=== PATIENT | female | born 1975 | race Caucasian/White ===

== ENCOUNTER 2017-03-31 09:21 | Emergency (ER) | payer MEDICAID ==
[2017-03-31 09:27] VITALS: O2SAT 99
[2017-03-31] MEDS ORDERED: ONDANSETRON DISINTEGRATING 4 MG TAB PO ONE (09:39)
--- NOTE | 2017-03-31 09:43 | EDPHY ---
H & P Stated Complaint: Had panic attack 2 days ago,passed out & hit head;concern about concussion Source: Patient - Personal History LMP (Females 10-55): 8-14 Days Ago Current Tetanus Diphtheria and Acellular Pertussis (TDAP): Yes - Medical/Surgical History Hx Asthma: Yes Hx Chronic Respiratory Disease: No Hx Diabetes: No Hx Cardiac Disease: No Hx Renal Disease: No Hx Cirrhosis: No Hx Alcoholism: No Hx HIV/AIDS: No Hx Splenectomy or Spleen Trauma: No Other PMH: ADHD. anxiety - Social History Smoking Status: Never smoked Time Seen by Provider: 03/31/17 09:30 HPI/ROS: CHIEF COMPLAINT: Headache HISTORY OF PRESENT ILLNESS: This is a 41-year-old female presenting to the emergency department complaining headache with nausea. Patient states 2 days ago she was sitting on the toilet felt like she was having a panic attack hands felt numb, passed out while she was on the toilet hitting head. Patient states her son and his friends found her on the floor and woke her up. Patient states she does not know how long she was on the floor, since then she has been having intermittent nausea with headaches. Patient also reports she has not been taking her Adderall for several days, does not know if this panic attack may have been a component of not using her Adderall. Denies any chest pain or shortness of breath REVIEW OF SYSTEMS: Constitutional: No fever, no chills. Eyes: No blurred vision ENT: No sore throat. Cardiovascular: No chest pain, no palpitations. Respiratory: No cough, no shortness of breath. Gastrointestinal: Intermittent nausea Genitourinary: No hematuria. Musculoskeletal: No back pain. Skin: No rashes. Neurological: headache. (Ju Daugherty) - Physical Exam Exam: General Appearance: Alert, no distress. Eyes: PERRLA no pallor or injection. ENT, Mouth: Mucous membranes moist. Scabbed over lip laceration right corner of lower lip Respiratory: There are no retractions, lungs are clear to auscultation. Cardiovascular: Regular rate and rhythm. Gastrointestinal: Abdomen is soft and nontender, no masses, bowel sounds normal. Neurological: No focal deficits. Ambulatory without gait disturbance Skin: Warm and dry, no rashes. Musculoskeletal: Vertebral cervical spine nontender on palpation. Full range of motion Extremities: symmetrical, full range of motion. Psychiatric: Patient is oriented X 3, there is no agitation. (Ju Daugherty) Constitutional: Initial Vital Signs Temperature (C) 36.9 C 03/31/17 09:22 Heart Rate 75 03/31/17 09:22 Respiratory Rate 18 03/31/17 09:22 Blood Pressure 118/79 03/31/17 09:22 O2 Sat (%) 99 03/31/17 09:22 O2 Delivery Mode Room Air Allergies/Adverse Reactions: No Allergies [NKDA] Allergy (Verified 03/31/17 09:22) ENVIRONMENTAL Allergy (Mild, Uncoded 04/17/11 16:51) Congestion Home Medications: Medication Instructions Recorded Amphet Asp and D/Amphet [Adderall 10 mg PO 03/31/17 10 MG (*)] Ondansetron Odt [Zofran Odt 4 mg 4 mg PO Q6 #10 tab 03/31/17 (*)] Medical Decision Making ED Course/Re-evaluation: Discussed the plan of care: CT head, Zofran ODT 1010: Spoke with Dr. Goodwin negative CT head 1030: Discussed negative CT results, and discharge instructions with patient--- > discharge home, stable. AAO x3, not in any distress, no neuro changes (Ju Daugherty) Differential Diagnosis: Other differential diagnosis considered but not limited to subarachnoid hemorrhage, CVA and panic attack (Ju Daugherty) Other Provider: The patient wasevaluatedand managed by themidlevel provider. My co- signature indicates that puneet reviewed this chart and I agree with the findings and plan of care asdocumented. I am the secondary supervising physician. (Tessa Hurt) - Data Points Medications Given: Discontinued Medications Ondansetron HCl (Zofran Odt) 4 mg PO EDNOW ONE Stop: 03/31/17 09:40 Last Admin: 03/31/17 09:45 Dose: 4 mg Departure - Departure Disposition: Home, Routine, Self-Care Clinical Impression: Post concussion syndrome Condition: Good Instructions: Post Concussion Syndrome (ED) Additional Instructions: Discussed discharge instructions 1. We discussed negative CT head no acute findings. You can take ibuprofen as needed for headaches 2. I have given you a prescription of Zofran he can take that as needed for nausea 3. I would recommend no driving when you have these episodes of dizziness 4. Follow up with your primary care physician this week 5. If any symptoms worsen such is worsening headache, dizziness passing out return to the ER Referrals: JASMIN KENNEDY [Primary Care Provider] - As per Instructions Prescriptions: Ondansetron Odt [Zofran Odt 4 mg (*)] 4 mg PO Q6 #10 tab
[2017-03-31 10:24] VITALS: BP 117/76; PULSE 68; RESP 16; TEMP 97.7
== END 2017-03-31 10:25 | disposition home or self-care (01) ==
DX: S06.0X0A Concussion without loss of consciousness, initial encounter (principal); J45.909 Unspecified asthma, uncomplicated; W22.8XXA Striking against or struck by other objects, initial encounter

== ENCOUNTER → 2018-01-05 | Outpatient (CLI) | payer MEDICAID | LOC: FIMAGING 15:04 | DX: Z12.31 Encounter for screening mammogram for malignant neoplasm of breast (principal); Z80.3 Family history of malignant neoplasm of breast ==

== ENCOUNTER 2018-12-27 04:34 | Inpatient (IN) | payer MEDICAID ==
--- NOTE | 2018-12-27 04:45 | EDPHY ---
H & P Time Seen by Provider: 12/27/18 04:45 HPI/ROS: HPI CHIEF COMPLAINT: Pleuritic pain with deep inspiration, fever, cough green sputum HISTORY OF PRESENT ILLNESS: This is a very pleasant 43-year-old female she arrives to the emergency room by EMS for left-sided lung pain. She states when she takes deep breath in she has severe pain. States earlier in the week she was diagnosed with influenza and started on Tamiflu. And then subsequently started on prednisone and azithromycin. She is on her last dose of Tamiflu. She states her symptoms have gotten worse worse when she takes deep breath in left-sided lung pain. Productive cough, fever. Past Medical History: Asthma Past Surgical History: No recent surgery Social History: Denies drugs alcohol tobacco. Family History: Noncontributory ROS REVIEW OF SYSTEMS: 10 Systems were reviewed and negative with the exception of the elements mentioned in the history of present illness. Exam Constitutional triage nursing summary reviewed, vital signs reviewed, awake/ alert. Vital signs noted to be abnormal upon arrival heart rate in the 140s, temperature 39.5 degrees. Eyes normal conjunctivae and sclera, EOMI, PERRLA. HENT normal inspection, atraumatic, moist mucus membranes, no epistaxis, neck supple/ no meningismus, no raccoon eyes. Respiratory crackles left lung base, otherwise clear to auscultation bilaterally, normal breath sounds, no respiratory distress, no wheezing. Cardiovascular rate normal, regular rhythm, no murmur, no edema, distal pulses normal. Gastrointestinal soft, non-tender, no rebound, no guarding, normal bowel sounds, no distension, no pulsatile mass. Genitourinary no CVA tenderness. Musculoskeletal no midline vertebral tenderness, full range of motion, no calf swelling, no tenderness of extremities, no meningismus, good pulses, neurovascularly intact. Skin pink, warm, & dry, no rash, skin atraumatic. Neurologic awake, alert and oriented x 3, AAOx3, moves all 4 extremities equally, motor intact, sensory intact, CN II-XII intact, normal cerebellar, normal vision, normal speech. Psychiatric normal mood/affect. Heme/Lymph/Immune no lymphadenopathy. Differential Diagnosis: Includes but is not limited to in a particular order influenza, pneumonia, pulmonary infarct, sepsis, bacteremia, dehydration Medical Decision Making: IV establishment blood draw, blood cultures, lactic acid, chest x-ray, EKG, fever control. Re-evaluation: 0538: Patient here in emergency room tachycardia, she is not profoundly hypoxic complaining of left-sided pleuritic pain. Chest x-ray reviewed shows a left-sided pneumonia. Blood cultures have been pulled. IV Rocephin has been ordered. Patient has been placed on azithromycin outpatient as been taking this. EKG interpretation by me on record in [employer] system. Impression time of EKG 5:20 a.m., sinus tach 121, there is a prolonged QT interval. No acute ischemia Plan for hospital admission Patient agrees for admission. Consult Dr. Weaver who agrees to admit for Influenza and PNA. Source: Patient, EMS - Medical/Surgical History Hx Asthma: Yes Hx Chronic Respiratory Disease: No Hx Diabetes: No Hx Cardiac Disease: No Hx Renal Disease: No Hx Cirrhosis: No Hx Alcoholism: No Hx HIV/AIDS: No Hx Splenectomy or Spleen Trauma: No Other PMH: ADHD. anxiety - Social History Smoking Status: Never smoked Constitutional: Initial Vital Signs Temperature (C) 39.5 C H 12/27/18 04:46 Heart Rate 138 H 12/27/18 04:46 Respiratory Rate 20 12/27/18 04:46 Blood Pressure 117/54 L 12/27/18 04:46 O2 Sat (%) 94 12/27/18 04:46 O2 Delivery Mode Nasal Cannula,Humidified O2 (L/minute) 0.5 Allergies/Adverse Reactions: No Allergies [NKDA] Allergy (Verified 03/31/17 09:22) ENVIRONMENTAL Allergy (Mild, Uncoded 04/17/11 16:51) Congestion Home Medications: Medication Instructions Recorded Amphet Asp and D/Amphet [Adderall 10 mg PO TID PRN 03/31/17 10 MG (*)] Acetaminophen [Tylenol ES 500 mg 500 - 1,000 mg PO Q8H PRN 12/27/18 (*)] Albuterol [Proventil Neb] 3 ml IH QID PRN 12/27/18 Azithromycin [Zithromax] 250 mg PO DAILY 12/27/18 Ibuprofen [Motrin (*)] 200 - 600 mg PO Q6H PRN 12/27/18 LORazepam [Ativan (*)] 0.5 - 1 mg PO Q8H PRN 12/27/18 Loperamide HCl [Imodium 2 mg (*)] 2 mg PO PRN PRN 12/27/18 Oseltamivir Phosphate [Tamiflu 75 75 mg PO BID 12/27/18 mg (*)] Pantoprazole Sodium 20 mg PO DAILY PRN 12/27/18 predniSONE 20 mg PO BID 12/27/18 Medical Decision Making - Data Points Laboratory Results: Laboratory Results 12/27/18 11:56 12/27/18 04:40 Microbiology Results: MICROBIOLOGY 12/27/18 05:42 Blood Blood Culture - Preliminary Streptococcus Pneumoniae 12/27/18 05:10 Blood Blood Culture - Preliminary Streptococcus Pneumoniae 12/27/18 05:10 Blood Blood Panel (PCR) - Final Streptococcus Pneumoniae Medications Given: Albuterol (Proventil Inhaler) 2 puffs IH Q4HRS PRN PRN Reason: Short of Breath/Dyspnea Stop: 06/25/19 13:51 Last Admin: 12/27/18 14:14 Dose: 2 puffs Albuterol (Proventil Neb) 3 ml IH QID PRN PRN Reason: Short of Breath/Dyspnea Stop: 06/25/19 16:01 Last Admin: 12/27/18 16:41 Dose: 3 ml Azithromycin (Zithromax) 250 mg PO DAILY PAUL PRN Reason: Protocol Stop: 01/27/19 08:59 Last Admin: 12/28/18 08:48 Dose: 250 mg Benzonatate (Tessalon Pearles) 200 mg PO TID PRN PRN Reason: Cough, Mild Stop: 06/25/19 10:21 Last Admin: 12/28/18 15:16 Dose: 200 mg Cetirizine HCl (Zyrtec) 10 mg PO DAILY PAUL Stop: 06/25/19 16:14 Last Admin: 12/28/18 08:48 Dose: 10 mg Gabapentin (Neurontin) 100 mg PO HS PAUL Stop: 06/25/19 20:59 Last Admin: 12/28/18 22:29 Dose: Not Given Guaifenesin (Mucinex) 1,200 mg PO BID PAUL Stop: 06/25/19 15:59 Last Admin: 12/28/18 20:42 Dose: 1,200 mg Guaifenesin/Dextromethorphan (Robitussin Dm Oral Liquid) 10 ml PO Q4HRS PRN PRN Reason: Cough, Moderate Stop: 06/25/19 16:06 Last Admin: 12/28/18 20:42 Dose: 10 ml Ceftriaxone Sodium 2 gm/ (Sodium Chloride) 50 mls @ 100 mls/hr IV DAILY PAUL PRN Reason: Protocol Stop: 01/27/19 08:59 Last Admin: 12/28/18 08:48 Dose: 50 mls Ketorolac Tromethamine (Toradol) 30 mg IVP Q6HRS PRN PRN Reason: Pain, Moderate Stop: 01/01/19 10:16 Last Admin: 12/28/18 20:43 Dose: 30 mg Loperamide HCl ( Imodium) 2 mg PO PRN PRN PRN Reason: loose stools Stop: 06/25/19 16:01 Last Admin: 12/27/18 22:23 Dose: 2 mg Lorazepam (Ativan) 0.5 - 1 mg PO Q8H PRN PRN Reason: Anxiety Stop: 06/25/19 10:21 Last Admin: 12/27/18 22:23 Dose: 1 mg Morphine Sulfate (Morphine) 1 - 2 mg IVP Q6 PRN PRN Reason: Pain, Severe Unable to Take PO Stop: 01/06/19 13:58 Last Admin: 12/28/18 20:42 Dose: 1 mg Promethazine HCl/Codeine (Phenergan W/ Codeine) 5 ml PO Q6HRS PRN PRN Reason: Cough, Moderate Stop: 06/25/19 16:05 Last Admin: 12/28/18 22:37 Dose: 5 ml Discontinued Medications Acetaminophen (Tylenol) 1,000 mg PO EDNOW ONE Stop: 12/27/18 04:55 Last Admin: 12/27/18 05:18 Dose: 1,000 mg Guaifenesin/Codeine Phosphate (Robitussin Ac) 10 ml PO Q6HRS PRN PRN Reason: Cough, Moderate Stop: 06/25/19 10:21 Last Admin: 12/27/18 10:45 Dose: 10 ml Hydromorphone HCl (Dilaudid) 0.5 mg IVP EDNOW ONE Stop: 12/27/18 04:53 Last Admin: 12/27/18 05:17 Dose: 0.5 mg Sodium Chloride (Ns) 1,000 mls @ 0 mls/hr IV EDNOW ONE; Wide Open PRN Reason: Protocol Stop: 12/27/18 04:52 Last Admin: 12/27/18 05:05 Dose: 1,000 mls Sodium Chloride (Ns) 1,000 mls @ 0 mls/hr IV ONCE ONE PRN Reason: Wide Open Stop: 12/27/18 04:54 Last Admin: 12/27/18 05:06 Dose: 1,000 mls Ceftriaxone Sodium 2 gm/ (Sodium Chloride) 50 mls @ 100 mls/hr IV EDNOW ONE PRN Reason: Protocol Stop: 12/27/18 06:01 Last Admin: 12/27/18 05:56 Dose: 50 mls Azithromycin 500 mg/ Dextrose 255 mls @ 255 mls/hr IV EDNOW ONE PRN Reason: Protocol Stop: 12/27/18 06:32 Last Admin: 12/27/18 05:45 Dose: Not Given Sodium Chloride (Ns) 1,000 mls @ 0 mls/hr IV EDNOW ONE; Wide Open PRN Reason: Protocol Stop: 12/27/18 06:31 Last Admin: 12/27/18 06:32 Dose: 1,000 mls Ceftriaxone Sodium/Dextrose (Rocephin 1 Gm (Premix)) 50 mls @ 100 mls/hr IV DAILY PAUL PRN Reason: Protocol Stop: 01/27/19 08:59 Last Admin: 12/27/18 18:05 Dose: 50 mls Ceftriaxone Sodium/Dextrose (Rocephin 1 Gm (Premix)) 50 mls @ 100 mls/hr IV ONCE ONE PRN Reason: Protocol Stop: 12/27/18 17:52 Last Admin: 12/27/18 17:50 Dose: 50 mls Ibuprofen (Motrin) 800 mg PO EDNOW ONE Stop: 12/27/18 04:55 Last Admin: 12/27/18 05:18 Dose: 800 mg Morphine Sulfate (Morphine) 4 mg IVP ONCE ONE Stop: 12/27/18 07:47 Last Admin: 12/27/18 07:51 Dose: 4 mg Oseltamivir Phosphate (Tamiflu) 75 mg PO BID PAUL Stop: 12/27/18 22:00 Last Admin: 12/27/18 23:09 Dose: 75 mg Prednisone (Prednisone) 20 mg PO DAILY PAUL Stop: 06/25/19 13:59 Last Admin: 12/27/18 14:35 Dose: 20 mg Prednisone (Prednisone) 40 mg PO ONCE ONE Stop: 12/27/18 15:54 Last Admin: 12/27/18 16:20 Dose: Not Given Prednisone (Prednisone) 40 mg PO DAILY ONE Stop: 12/28/18 09:01 Last Admin: 12/28/18 08:48 Dose: 40 mg Prednisone (Prednisone) 20 mg PO ONCE ONE Stop: 12/27/18 16:16 Last Admin: 12/27/18 16:08 Dose: 20 mg Prednisone (Prednisone) 20 mg PO ONCE ONE Stop: 12/27/18 17:01 Last Admin: 12/27/18 16:57 Dose: Not Given Point of Care Test Results: Chemistry 12/27/18 05:41 POC Troponin I 0.00 ng/mL ng/mL (0.00-0.08) Departure - Departure Disposition: [facility] Inpatient Acute Clinical Impression: Influenza, Tachycardia Pneumonia Qualifiers: Pneumonia type: due to unspecified organism Laterality: left Lung location: unspecified part of lung Qualified Code(s): J18.9 - Pneumonia, unspecified organism Fever Qualifiers: Fever type: unspecified Qualified Code(s): R50.9 - Fever, unspecified Condition: Serious
[2018-12-27] MEDS ORDERED: NS 1,000 ML IV ONE ×3 (04:51→06:30)
[2018-12-27] MEDS ORDERED: HYDROmorphONE/DILAUDID 2 MG/ML INJ IVP ONE (04:52)
[2018-12-27] MEDS ORDERED: IBUPROFEN 800 MG TAB PO ONE (04:54)
[2018-12-27] MEDS ORDERED: ACETAMINOPHEN 500 MG TAB PO ONE (04:54)
[2018-12-27 05:03] LABS: PLATELET COUNT 269 10^3/uL (150-400)
[2018-12-27] MEDS ORDERED: AZITHROMYCIN IV 500 MG in D5W 250 ML IV ONE (05:33)
[2018-12-27] MEDS ORDERED: ONDANSETRON 4 MG/2 ML VIAL IVP PRN (08:24)
[2018-12-27] MEDS ORDERED: ONDANSETRON DISINTEGRATING 4 MG TAB PO PRN (08:24)
[2018-12-27] MEDS ORDERED: guaiFENesin/CODEINE PHOS 10 ML UDCUP PO PRN (10:22)
[2018-12-27] MEDS ORDERED: ADDERALL 10 MG TAB PO PRN (10:22)
[2018-12-27] MEDS: KETOROLAC 30 MG/1 ML SDV IVP PRN ×2 (10:46→18:09)
[2018-12-27] MEDS: BENZONATATE 100 MG CAP PO PRN ×2 (10:46→13:32)
[2018-12-27] MEDS: OSELTAMIVIR PHOSPHATE 75 MG CAP PO SCH ×2 (11:43→23:09)
--- NOTE | 2018-12-27 11:51 | GHP ---
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 Lang CHIEF COMPLAINT: Chest pain, cough. HISTORY OF PRESENT ILLNESS: This is a 43-year-old female with attention deficit hyperactivity disorder (ADHD), anxiety, and recently diagnosed influenza A presenting with left-sided chest pain. She developed flu-like symptoms on Friday evening with a dry cough and myalgias. She describes feeling like being hit by a truck. She saw her PCP the next day and was tested positive for influenza and started on Tamiflu. Her cough progressed, thus she returned to doctor on who started her on prednisone and a Z-French. Over the last day, she has developed sharp pain in the left lower ribs, worse with inspiration. She had some pain in that arm but that has resolved. Cough exacerbates pain as well. She is now having a productive cough with green sputum and intermittent fevers at home. Chest x-ray demonstrates a possible right lobe infiltrate. REVIEW OF SYSTEMS: I completed a 10-point review of systems, negative except as noted in the HPI. PAST MEDICAL HISTORY: ADH, IBS, anxiety, esophageal stricture status post dilatation.Asthma PAST SURGICAL HISTORY: Removal of left fallopian tube and ovary. SOCIAL HISTORY: She has a son who is a quadriplegic, but now lives in [place]. She occasionally eats edibles. Occasional alcohol. No tobacco. FAMILY HISTORY: Noncontributory. ALLERGIES: Seasonal allergies. HOME MEDICATIONS: 1. Imodium as needed. 2. Motrin as needed. 3. Tylenol as needed. 4. Pantoprazole 20 mg p.r.n. 5. Tamiflu 75 mg b.i.d. 6. Ativan 0.5-1 mg q.8 hours p.r.n. 7. Adderall 10 mg t.i.d. p.r.n. 8. Zithromax 250 mg daily. PHYSICAL EXAMINATION: VITAL SIGNS: Temperature 36.9, blood pressure 94/60, heart rate in the 120s, respirations 18, 95% on 0.5 L. GENERAL: Uncomfortable but in no acute distress. HEENT: PERRLA. Dry mucous membranes. CVS: Tachy, but regular. LUNGS: Clear. No crackles. CHEST: Tenderness to lower ribs with palpation. GI: Soft, nontender, nondistended. Positive bowel sounds. : No Gutiérrez. MUSCULOSKELETAL: Moving all 4 extremities. NEURO: 2 through 12 intact. PSYCH: Alert and oriented x3. LABS: WBC 13, hemoglobin 14, hematocrit 42, platelets 269. Lactate is 2.2, improved to 1.5. Sodium 138, potassium 3.8, chloride 101, carbon dioxide 24, anion gap 13, creatinine 0.5, glucose 93. BNP 2050. Troponin 0.00. Procalcitonin is 2.24. EKG, is personally reviewed by me, tachycardic and nonspecific repolar abnormalities. Chest x-ray, personally reviewed by me, left lower lobe opacification and no effusion. ASSESSMENT/PLAN: 1. Atypical chest pain: pleurisy versus pericarditis. Has diffuse ST depression , but negative troponin. Echo pending 2. Sepsis: elevated lactate, leukocytosis, and tachycardia. Post-viral CAP; CTX, Azithro. Complete Tamiflu this evening. 3. Postviral pneumonia: Procalcitonin is elevated greater than 2. She was previously on Zithromax, we will add ceftriaxone as well. 4. Influenza A: Complete Tamiflu today. 5. Lactic acidosis secondary to decreased p.o. intake, starvation ketoacidosis : Resolved with IV fluids. 6. Tachycardia: Secondary to dehydration and pain. Again, hydrate and p.r.n. Toradol. 7. Attention deficit hyperactivity disorder (ADHD): Continue Adderall. 8. Anxiety: Home Ativan as needed. 9. History of esophageal stricture: PPI. 10. Diet: Regular. 11. Deep vein thrombosis (DVT) prophylaxis: Ambulatory. DISPOSITION: Warrants observation admission for IV fluids, antibiotics, and telemetry. /[id number]/MODL MTDD
--- NOTE | 2018-12-27 12:31 | ECHO ---
[email or web address] [address] Main: [phone] Fax: Transthoracic Echocardiogram Name: MATY SAMPSON MR#: [id number] Study Date: 12/27/2018 Study Time: 11:02 AM Date of : 1975 Age: 43 year(s) Height: 154.9 cm (61 in.) Weight: 45.81 kg (101 lb.) BSA: 1.41 m2 Gender: Female Examination: Echo Indication: new chest pain, elevated BNP Image Quality: Adequate Contrast: Requested by: Keely Villalobos BP: 94 mmHg/60 mmHg Heart Rate: Rhythm: Indication: new chest pain, elevated BNP Procedure Staff Mechanical Service Representative: Keely Lomeli RDCS Reading Physician: Gee Reynoso MD Requesting Provider: Conclusions: Normal size left ventricle. EF is 63 %. No regional wall motion abnormality. Normal RV function. Trivial mitral valve regurgitation. No mitral stenosis is present. The aortic valve is tri-leaflet. Mild to moderate tricuspid valve regurgitation. The pulmonary artery pressure is mildly increased. There is no previous echocardiogram for comparison. Measurements: Chambers Valvular Assessment AV/MV Valvular Assessment TV/PV Normal Normal Normal Name Value Range Name Value Range Name Value Range Ao [place] (2D): 2.2 cm (1.4 cm-2.6 AV Vmax: 1.42 m/s (1 m/s-1.7 TR Vmax: 2.96 mm/s ( - ) cm) m/s) TR PGmax: 35 mmHg ( - ) IVSd (2D): 0.9 cm (0.6 cm-1.1 AV maxP mmHg ( - ) syst. PAP: 40 mmHg ( - ) cm) AV meanP mmHg ( - ) PV Vmax: 0.84 m/s (0.6 m/s-0.9 LVDd (2D): 3.6 cm (3.9 cm-5.3 MELISSA (VTI): 2.0 cm ( - ) m/s) cm) MV E Vmax: 0.83 m/s ( - ) PV PGmax: 3 mmHg ( - ) LVDs (2D): 2.3 cm (2.1 cm-4 MV A Vmax: 0.76 m/s ( - ) cm) MV E/A: 1.09 ( - ) LVPWd (2D): 0.9 cm ( - ) MV PHT: 0.041 s ( - ) LVOTd 1.7 cm 1.7 cm mm MVA (PHT): 5.4 s ( - ) LVEF (MOD4): 63 % (>=55 %) RVDd(2D): 2.4 cm (1.9 cm-3.8 cmmm) Continued Measurements: Patient: MATY SAMPSON Study Date: 12/27/2018 Page 1 of 2 11:02 AM Chambers Valvular Assessment AV/MV Valvular Assessment TV/PV Name Value Name Value Name Value LADs: 2.7 cm MV DecTime: 137 m/s CVP (est.): 5 mmHg LADs Lon.8 cm MV E' Septal: 0.11 m/s LA Area: 13.4 cm2 MV E/E' Septal: 7.30 LA Volume: 30 ml MV E/E' Lateral: 7.40 LA Volume Index: 21.3 ml/m2 Additional Vessels Name Value Ao Ascendin.0 cm Inferior Vena Cava: 1.5 cm Findings: Left Ventricle: Normal size left ventricle. No LV hypertrophy. Normal global systolic LV function. EF is 63 %. No regional wall motion abnormality. Normal diastolic LV function. Right Ventricle: Normal size right ventricle. Normal RV function. Left Atrium: The left atrium is normal in size. Right Atrium: The right atrium is normal in size. Mitral Valve: The mitral valve is normal in appearance and function. Trivial mitral valve regurgitation. No mitral stenosis is present. Aortic Valve: The aortic valve is tri-leaflet. There is no significant aortic valve regurgitation. Tricuspid Valve: The tricuspid valve is normal in appearance and function. Mild to moderate tricuspid valve regurgitation. The pulmonary artery pressure is mildly increased. Right ventricular systolic pressure measures 40mmHg. Pulmonic Valve: The pulmonic valve is normal in appearance and function. There is no pulmonic regurgitation seen. Aorta: The aorta is normal. Normal size aortic root measuring 2.2 cm. Normal size ascending aorta measuring 2.0 cm. IVC: The IVC is normal sized. Pericardium: Trivial pericardial effusion. There is a pleural effusion present. (No Signature Object) Patient: MATY SAMPSON Study Date: 12/27/2018 Page 2 of 2 11:02 AM [id number]
[2018-12-27] MEDS: LORazepam 1 MG TAB PO PRN ×2 (13:40→22:23)
[2018-12-27] MEDS ORDERED: predniSONE 20 MG TAB PO SCH (14:00)
[2018-12-27] MEDS: ALBUTEROL 60 PUFFS/8 GM MDI IH PRN (14:14)
--- NOTE | 2018-12-27 15:44 | ASMTCMCOM ---
CM Note CM Note Notes: Patient chart reviewed for discharge planning purposes. 43 year old female s/p one week of influenza admitted with pleuritic pain and is diagnosed with pneumonia. No needs anticipated for discharge at this time. CM available should needs arise. Plan: likely to discharge home independent when medically cleared for discharge. Date Signed: 12/27/2018 03:44 PM Electronically Signed By:Alice Cortez RN
[2018-12-27] MEDS ORDERED: predniSONE 20 MG TAB PO ONE ×3 (15:53→17:00)
[2018-12-27] MEDS: guaiFENesin 600 MG TAB.ER PO SCH ×2 (16:09→22:20)
[2018-12-27] MEDS: CETIRIZINE 10 MG TAB PO SCH (16:32)
[2018-12-27] MEDS: LOPERAMIDE HCL 2 MG CAP PO PRN ×3 (16:32→22:23)
[2018-12-27] MEDS: CODEINE/PROMETHAZINE 5 ML UDL PO PRN (16:33)
[2018-12-27] MEDS: ALBUTEROL 3 ML DEYVIAL IH PRN (16:41)
[2018-12-27] MEDS: GUAIFENESIN/DM 10 ML UDCUP PO PRN ×2 (18:09→22:19)
[2018-12-27] MEDS: GABAPENTIN 100 MG CAP PO SCH (22:56)
[2018-12-28] MEDS: GUAIFENESIN/DM 10 ML UDCUP PO PRN ×4 (04:11→20:42)
[2018-12-28] MEDS: KETOROLAC 30 MG/1 ML SDV IVP PRN ×2 (08:46→20:43)
[2018-12-28] MEDS: guaiFENesin 600 MG TAB.ER PO SCH ×2 (08:48→20:42)
[2018-12-28] MEDS: CETIRIZINE 10 MG TAB PO SCH (08:48)
[2018-12-28] MEDS: AZITHROMYCIN 250 MG TAB PO SCH (08:48)
[2018-12-28] MEDS ORDERED: predniSONE 20 MG TAB PO ONE (09:00)
[2018-12-28] MEDS ORDERED: PANTOPRAZOLE SODIUM 40 MG TAB PO PRN (09:00)
[2018-12-28] MEDS: BENZONATATE 100 MG CAP PO PRN ×2 (09:53→15:16)
--- NOTE | 2018-12-28 14:14 | HOSPPROG ---
Hospitalist Progress Note Assessment/Plan: #Atypical chest pain: pleurisy versus pericarditis. Has diffuse ST depression, but negative troponin. Echo normal # Sepsis: due to PNA, Strep bacteremia. #Strep PNA/bacteremia: IV CTX, repeat blood cx in AM #Influenza A: completed Tamiflu #Tachycardia: resolved # Lactic acidosis: resolved with IVFs # Attention deficit hyperactivity disorder (ADHD): Continue Adderall. # Anxiety: Home Ativan as needed. # History of esophageal stricture: PPI. # Diet: Regular. # Deep vein thrombosis (DVT) prophylaxis: Ambulatory. Inpatient admission for bacteremia, requiring IV abx Subjective: coughing improved Objective: Vital Signs Temp Pulse Resp BP Pulse Ox 36.8 C 86 14 109/70 96 12/28/18 12:07 12/28/18 12:07 12/28/18 12:07 12/28/18 12:07 12/28/18 12:07 Laboratory Results 12/27/18 11:56 12/27/18 12/28/18 12/29/18 05:59 05:59 05:59 Intake Total 900 Balance 900 - Time Spent With Patient Time Spent with Patient: greater than 35 minutes Time Spent with Patient: Greater than 35 minutes spent on this patients care, greater than 50% of time spent counseling, educating, and coordinating care regarding the above mentioned plan. - Physical Exam Constitutional: no apparent distress Eyes: PERRL Ears, Nose, Mouth, Throat: moist mucous membranes Cardiovascular: regular rate and rhythym Respiratory: other (decreased BS throughout, dull at left base. No wheeze) Gastrointestinal: normoactive bowel sounds Genitourinary: no bladder fullness Skin: warm Musculoskeletal: full muscle strength Neurologic: AAOx3, CN II-XII Intact Psychiatric: interacting appropriately, anxious ICD10 Worksheet Patient Problems: Problems Problem Status Onset Fever Acute Influenza Acute Pneumonia Acute Tachycardia Acute
--- NOTE | 2018-12-28 14:34 | PDMN ---
Medical Necessity Medical necessity: [facility] [place] M160 Sepsis, A-2 days: 43 yo w/ flu like s/sx and CP. Pt influenza A+, was seen by PCP, started on Zpack and steroids with worsening s /sx. Now w/ sepsis due to PNA and strep bacteremia meeting IP med nec care. Pt requiring additional MN for ongoing monitoring and tx. Hx ADHD, IBS, anxiety , esophageal stricture s/p dilatation, asthma. Change to IP status 12/28/18@ 1411 per MD order.
--- NOTE | 2018-12-28 17:46 | GCON ---
[f rep st] CONSULTATION INPATIENT INFECTIOUS DISEASE CONSULTATION REFERRING PHYSICIAN: Keely Villalobos MD REASON FOR REFERRAL: Streptococcal bacteremia. HISTORY OF PRESENT ILLNESS: Patient is a 43-year-old female with no underlying medical conditions, w john was admitted to [facility] on 12/27/2018 with left-sided chest pain and a high fever . Patient stated that last week she became ill and went to her primary care physician and was diagno sed with influenza A by swab. She started on Tamiflu, but developed a pain in the left side of her c hest as well as a pain in her left upper arm. This became excruciating over the weekend on Friday and she came to the emergency room. Workup in the emergency room revealed a normal cardiac workup, b ut a left lingular pneumonia. Blood cultures drawn from the emergency room are now growing Streptoco ccus pneumoniae. Patient was placed on ceftriaxone 2 g daily. Currently, she is resting comfortably in her hospital bed and states that though she feels tired and with a decreased appetite, she feels somewhat better due to the relief of pain from admission. PAST MEDICAL HISTORY: 1. Asthma. 2. Anxiety. 3. Irritable bowel syndrome. 4. History of esophageal stricture. PAST SURGICAL HISTORY: 1. Status post esophageal stricture dilatation. 2. Status post left-sided oophorectomy. ANTIBIOTICS: Ceftriaxone. ALLERGIES: Patient has only seasonal allergies. SOCIAL HISTORY: Patient lives up in [place]. She has a son who is quadriplegic, but lives [place], [place] [facility] [place]. Occasional alcohol. No tobacco use. FAMILY HISTORY: Reviewed but noncontributory. REVIEW OF SYSTEMS: Other than that detailed above in history of present illness, a comprehensive 10- system review is negative. PHYSICAL EXAMINATION: VITAL SIGNS: Temperature maximum 37.1, temperature current 36.8, heart rate i s 86, respiratory rate is 14, blood pressure is 109/70. GENERAL: Patient is a well-formed, well-nou rished middle-aged female in no acute distress. She is not toxic in appearance. She is alert and or iented x3. She is pleasant in demeanor. HEENT: Normocephalic for age. Atraumatic. No scleral ict erus. No oral lesion or drainage from the nares. Eyes, lids and conjunctivae are within normal limi ts. Pupils are equal and round bilaterally. NECK: Supple. No meningismus. LUNGS: Clear to auscu ltation bilaterally with good effort. No crackles heard. HEART: Regular rate and rhythm. No murmu r, rub, or gallop noted. No significant peripheral edema. SKIN: Warm and dry to the touch. No nilson h or lesion noted. MUSCULOSKELETAL: No muscle belly tenderness is noted. No joint line effusion or arthritis is seen. NEURO: Cranial nerves 2-12 seem to be intact. Peripheral sensation seems intac t in extremities. LABORATORY DATA: Patient has a CBC dated 12/27/18 that shows a white blood cell count of 13.5, hemog lobin of 14.2, hematocrit of 42.6, platelet count of 269. Differential is within normal limits. Ser um chemistries on 12/27/2018 show sodium 138, potassium 3.8, chloride of 101, bicarbonate 24, BUN of 7, and creatinine of 0.5. C-reactive protein is elevated at 201.6. Procalcitonin is elevated at 2.2 4. Urine strep pneumo antigen is pending. MICROBIOLOGIC DATA: Patient has blood cultures, 2/2 sets drawn on 12/27/2018 are growing Streptococc us pneumoniae. Sensitivities are pending. RADIOLOGIC DATA: Patient has a chest x-ray dated 12/27/2018, AP view only. Shows extensive alveolar consolidation in the left lower lung zone. ASSESSMENT: Streptococcus pneumoniae pneumonia left lung with bacteremia. This is probably a post c omplication of influenza A infection from the week before. Ceftriaxone 2 g daily is the correct drug and dose at this point. We will follow up on sensitivities and adjust accordingly. We will continu e to use a peripheral IV as patient has a strong likelihood of having a fluoroquinolones sensitive is olate and could switch over to oral Levaquin for completion of treatment. PLAN: 1. Continue IV ceftriaxone current dose. 2. Follow up on blood culture isolate sensitivity panel. 3. Repeat blood cultures tomorrow. 4. Hold off on PICC line and continue with peripheral IV. /[id number]/MODL
[2018-12-28] MEDS: GABAPENTIN 100 MG CAP PO SCH (22:29)
[2018-12-28] MEDS: CODEINE/PROMETHAZINE 5 ML UDL PO PRN (22:37)
[2018-12-29] MEDS: GUAIFENESIN/DM 10 ML UDCUP PO PRN ×3 (03:56→17:56)
[2018-12-29] MEDS: BENZONATATE 100 MG CAP PO PRN ×2 (03:56→17:57)
--- NOTE | 2018-12-29 08:16 | CPEKG ---
Test Reason : OPEN Blood Pressure : / mmHG Vent. Rate : 121 BPM Atrial Rate : 121 BPM P-R Int : 110 ms QRS Dur : 080 ms QT Int : 429 ms P-R-T Axes : 069 040 265 degrees QTc Int : 609 ms Sinus tachycardia Nonspecific repol abnormality, diffuse leads Prolonged QT interval Confirmed by Carlos Chi ([id number]) on 12/29/2018 8:15:54 AM Referred By: Rani Weaver Confirmed By:Carlos Chi
[2018-12-29] MEDS: AZITHROMYCIN 250 MG TAB PO SCH (08:18)
[2018-12-29] MEDS: CETIRIZINE 10 MG TAB PO SCH (08:18)
[2018-12-29] MEDS: guaiFENesin 600 MG TAB.ER PO SCH ×2 (08:18→19:50)
[2018-12-29] MEDS: KETOROLAC 30 MG/1 ML SDV IVP PRN (08:24)
[2018-12-29] MEDS: ALBUTEROL 3 ML DEYVIAL IH PRN ×3 (08:31→21:23)
--- NOTE | 2018-12-29 08:56 | PCMIDPN ---
Assessment/Plan: # Pneumococcal LLL PNA and bacteremia. AF since admit. Increased WBC likely reflects appropriate response. Underlying risk factors recent influenza and underlying asthma. She did not receive flu shot this season. ECHO reviewed and ok. No hypoxia --continue ceftriaxone --check LFTs and HIV. Discuss w patient --blood cx repeated this AM --hopefully dc in the next day or two after sensi of pneumococcus available. --patient on droplet precautions due to recent diagnosis of influenza # Leukocytosis: got does Pred but likely appropriate response to infection --recheck CBC in the a.m. Microbiology 12/27/18 Blood Cx 2/ : Streptococcus Pneumoniae 12/29/18 Blood cx (2) pending Meds Ceftriaxone 3gm IV daily #3 Subjective: Still w paroxysmal coughing, kept her from sleeping last night. no focal pleuritic CP Diarrhea resolved Objective: Vital Signs Temp Pulse Resp BP Pulse Ox 37.0 C 78 18 111/76 97 12/29/18 07:36 12/29/18 08:32 12/29/18 08:32 12/29/18 07:36 12/29/18 08:32 Laboratory Results 12/29/18 04:45 12/28/18 12/29/18 12/30/18 05:59 05:59 05:59 Intake Total 1800 Balance 1800 ESR 19 MM/HR (0-20) 12/27/18 11:56 C-Reactive Protein 201.6 mg/L (<10.0) H 12/27/18 11:56 - Physical Exam General Appearance: alert, no apparent distress EENT: other (good dentition), No thrush Respiratory: other (decreased bs LLL, occasional crackles, L lateral lung field A to E changes), No accessory muscle use, No wheezing Cardiac/Chest: regular rate, rhythm, No systolic murmur Extremities: No pedal edema Abdomen: normal bowel sounds, non-tender, soft Skin: warm/dry, No diaphoresis, No rash Neuro/Psych: alert, normal mood/affect, oriented x 3 - Time Spent With Patient Time Spent with Patient: greater than 35 minutes Time Spent with Patient: Greater than 35 minutes spent on this patients care, greater than 50% of time spent counseling, educating, and coordinating care regarding the above mentioned plan. ICD10 Worksheet Patient Problems: Problems Problem Status Onset Fever Acute Influenza Acute Pneumonia Acute Tachycardia Acute
[2018-12-29] MEDS: LORazepam 1 MG TAB PO PRN ×2 (09:28→19:51)
[2018-12-29 11:02] LABS: HIV TYPE 1 AND 2 NEGATIVE (NEGATIVE)
[2018-12-29] MEDS: HYDROcodone/CPM TUSSIONEX 5 ML UDSYR PO PRN (13:44)
[2018-12-29] MEDS: ACETAMINOPHEN 325 MG TAB PO PRN ×2 (13:49→19:50)
[2018-12-29] MEDS ORDERED: LACTULOSE 20 GM/30 ML UDCUP PO PRN (15:13)
[2018-12-29] MEDS ORDERED: MAGNESIUM HYDROXIDE 30 ML UDCUP PO PRN (15:13)
[2018-12-29] MEDS ORDERED: POLYETHYLENE GLYCOL 3350 17 GM PKT PO PRN (15:13)
[2018-12-29] MEDS ORDERED: BISACODYL 10 MG SUPP PR PRN (15:13)
--- NOTE | 2018-12-29 16:54 | ASMTCMCOM ---
CM Note CM Note Notes: Plan of care reviewed in rounds this am. 43 year old female with PNA and influenza. Clinically not well enough to discharge yet. Likely one more day. No needs anticipated. Plan: Dc to home when medically cleared for discharge. Date Signed: 12/29/2018 04:54 PM Electronically Signed By:Alice Cortez RN
--- NOTE | 2018-12-29 17:43 | HOSPPROG ---
Hospitalist Progress Note Assessment/Plan: #Strep PNA/bacteremia: IV CTX. Repeat cultures NGTD. Await sensitivities; may be transitioned to orals -Day 3 abx #Intractable cough: Tessalon lamita,guaifenesin. Add Tussinex #Influenza A: completed Tamiflu #Mild asthma exacerbation: pred, nebs #Atypical chest pain: pleurisy versus pericarditis. Has diffuse ST depression, but negative troponin. Echo normal #Tachycardia: resolved # Lactic acidosis: resolved with IVFs # Sepsis: due to PNA, Strep bacteremia. # Attention deficit hyperactivity disorder (ADHD): Continue Adderall. # Anxiety: Home Ativan as needed. # History of esophageal stricture: PPI. # Diet: Regular. # Deep vein thrombosis (DVT) prophylaxis: Ambulatory. Inpatient admission for bacteremia, requiring IV abx Subjective: coughing kept her up all night Objective: Vital Signs Temp Pulse Resp BP Pulse Ox 36.9 C 100 18 107/76 100 12/29/18 15:22 12/29/18 15:22 12/29/18 15:22 12/29/18 15:22 12/29/18 15:22 Laboratory Results 12/29/18 04:45 12/28/18 12/29/18 12/30/18 05:59 05:59 05:59 Intake Total 1800 Balance 1800 - Time Spent With Patient Time Spent with Patient: greater than 35 minutes Time Spent with Patient: Greater than 35 minutes spent on this patients care, greater than 50% of time spent counseling, educating, and coordinating care regarding the above mentioned plan. - Physical Exam Constitutional: no apparent distress Eyes: PERRL Ears, Nose, Mouth, Throat: moist mucous membranes Cardiovascular: regular rate and rhythym Respiratory: other (Still tight, but moving more air. No wheezing) Gastrointestinal: normoactive bowel sounds Genitourinary: no bladder fullness Skin: warm Musculoskeletal: full muscle strength Neurologic: AAOx3, CN II-XII Intact Psychiatric: interacting appropriately ICD10 Worksheet Patient Problems: Problems Problem Status Onset Fever Acute Influenza Acute Pneumonia Acute Tachycardia Acute
[2018-12-29] MEDS: predniSONE 20 MG TAB PO SCH (17:57)
[2018-12-29] MEDS: SENNOSIDES/DOCUSATE SODIUM TAB PO SCH (19:51)
[2018-12-30] MEDS: HYDROcodone/CPM TUSSIONEX 5 ML UDSYR PO PRN ×2 (03:51→22:30)
[2018-12-30] MEDS: GUAIFENESIN/DM 10 ML UDCUP PO PRN ×3 (04:45→13:58)
[2018-12-30] MEDS: BENZONATATE 100 MG CAP PO PRN ×3 (04:45→21:15)
[2018-12-30] MEDS: CETIRIZINE 10 MG TAB PO SCH (08:42)
[2018-12-30] MEDS: SENNOSIDES/DOCUSATE SODIUM TAB PO SCH ×2 (08:42→21:03)
[2018-12-30] MEDS: predniSONE 20 MG TAB PO SCH (08:42)
[2018-12-30] MEDS: guaiFENesin 600 MG TAB.ER PO SCH ×2 (08:42→21:02)
[2018-12-30] MEDS: ALBUTEROL 3 ML DEYVIAL IH PRN ×2 (08:44→16:37)
[2018-12-30] MEDS: ACETAMINOPHEN 325 MG TAB PO PRN ×2 (08:54→16:32)
[2018-12-30] MEDS: VANCOMYCIN 500 MG in D5W 100 ML IV SCH ×2 (10:24→21:15)
--- NOTE | 2018-12-30 10:41 | PCMIDPN ---
Assessment/Plan: Assessment/Plan: * Streptococcus pneumoniae bacteremia and left lower lobe pneumonia: Susceptibility profile on Streptococcus pneumoniae shows significant drug resistance with intermediate susceptibility to ceftriaxone and penicillin. Patient's initial EKG showed a QTC of 609 making transition to fluoroquinolone problematic if this is persistently prolonged (potentially related to prior receipt of Tamiflu and azithromycin). Repeat blood culture show clearing of bacteremia so may still be achieving therapeutic affect with ceftriaxone despite intermediate susceptibility. However, based on this finding will change to vancomycin in short-term pending additional clinical improvement. Reviewed with lab and isolate is susceptible to linezolid which would serve as additional oral option for completion of therapy. Will repeat EKG to see if QT interval remains prolonged. Plan repeat chest x-ray in a.m. to ensure no evolution to parapneumonic effusion. Side effects of vancomycin including potential for allergic reactions, rash, kidney toxicity, laboratory abnormalities, or hearing loss discussed with patient. * Recent history of influenza: Status post Tamiflu. Continue droplet precautions while hospitalized. Time spent, greater than 35 min, which greater than half was spent in education/ counseling/coordination of care related to pneumococcal bacteremia and pneumonia including review of susceptibility profile with patient, laboratory and pharmacy. 12/30/18 10:37 12/30/18 10:42 12/30/18 10:48 Subjective: Patient with persistent cough which now is productive of yellow sputum in contrast to prior blood-tinged or green sputum. Some pleuritic chest pain persist although less prominent. History reviewed without significant contact with young children or daycare. Objective: Vital Signs Temp Pulse Resp BP Pulse Ox 36.7 C 83 16 118/78 97 12/30/18 08:35 12/30/18 08:44 12/30/18 08:44 12/30/18 08:35 12/30/18 08:44 Laboratory Results 12/30/18 04:54 12/29/18 12/30/18 12/31/18 05:59 05:59 05:59 Intake Total 1800 1400 500 Balance 1800 1400 500 ESR 19 MM/HR (0-20) 12/27/18 11:56 C-Reactive Protein 201.6 mg/L (<10.0) H 12/27/18 11:56 Ceftriaxone # 4 Blood cultures 12/1212/27/2018 Streptococcus pneumoniae with susceptibility profile reviewed Blood cultures 12/29/2018 no growth to date HIV antibody negative - Physical Exam General Appearance: alert, no apparent distress, non-toxic EENT: No scleral icterus, No thrush, No conjunctival petechiae Respiratory: other (Bronchial breath sounds left lower lung field; no E to A change; fair air movement present) Neck: supple, No meningismus Cardiac/Chest: regular rate, rhythm, No systolic murmur Extremities: No inflammation Abdomen: non-tender, No distended Skin: No rash ICD10 Worksheet Patient Problems: Problems Problem Status Onset Fever Acute Influenza Acute Pneumonia Acute Tachycardia Acute
--- NOTE | 2018-12-30 14:25 | HOSPPROG ---
Hospitalist Progress Note Assessment/Plan: #Strep PNA/bacteremia: -IV CTX. Changed today as CTX is intermediate resistance. Changed to Vancomycin due to Long QT syndrome - Repeat cultures NGTD. Await sensitivities #Long QT Syndrome on admission -EKG 12/30 shows resolution #Intractable cough: Tessalon pearls,guaifenesin. Add Tussinex #Influenza A: completed Tamiflu #Mild asthma exacerbation: pred, nebs #Atypical chest pain: pleurisy versus pericarditis. Has diffuse ST depression, but negative troponin. Echo normal #Tachycardia: resolved # Lactic acidosis: resolved with IVFs # Sepsis: due to PNA, Strep bacteremia. # Attention deficit hyperactivity disorder (ADHD): Continue Adderall. # Anxiety: Home Ativan as needed. # History of esophageal stricture: PPI. # Diet: Regular. # Deep vein thrombosis (DVT) prophylaxis: Ambulatory. Inpatient admission for bacteremia ID following Abx per ID, Long QT syndrome appears resolved. Subjective: + cough, worse with deep insparaton. no cp. afebrile Objective: Vital Signs Temp Pulse Resp BP Pulse Ox 36.7 C 83 16 118/78 97 12/30/18 08:35 12/30/18 08:44 12/30/18 08:44 12/30/18 08:35 12/30/18 08:44 Laboratory Results 12/30/18 04:54 12/30/18 10:54 12/29/18 12/30/18 12/31/18 05:59 05:59 05:59 Intake Total 1800 1400 500 Balance 1800 1400 500 - Physical Exam Constitutional: no apparent distress Eyes: PERRL, EOMI Ears, Nose, Mouth, Throat: moist mucous membranes, hearing normal Cardiovascular: regular rate and rhythym, No edema Respiratory: reduced air movement, expiratory wheeze Gastrointestinal: normoactive bowel sounds, soft, non-tender abdomen Skin: warm Neurologic: AAOx3 Psychiatric: interacting appropriately, not anxious, not encephalopathic Lymph, Heme, Immunologic: No petechiae ICD10 Worksheet Patient Problems: Problems Problem Status Onset Fever Acute Influenza Acute Pneumonia Acute Tachycardia Acute
--- NOTE | 2018-12-30 15:03 | CPEKG ---
Test Reason : OPEN Blood Pressure : / mmHG Vent. Rate : 071 BPM Atrial Rate : 075 BPM P-R Int : 144 ms QRS Dur : 069 ms QT Int : 402 ms P-R-T Axes : 056 048 047 degrees QTc Int : 437 ms Sinus rhythm Probable left atrial enlargement Confirmed by Vinayak Valle ([id number]) on 12/30/2018 3:02:58 PM Referred By: Rani Weaver Confirmed By:Vinayak Valle
[2018-12-30] MEDS ORDERED: PROTOCOL POTASSIUM 1 DOSE MISC PRN (15:20)
[2018-12-30] MEDS ORDERED: POTASSIUM CL 20 MEQ TAB PO ONE (15:30)
[2018-12-30] MEDS ORDERED: POTASSIUM CL 10 MEQ TAB PO ONE (20:22)
[2018-12-30] MEDS: LORazepam 1 MG TAB PO PRN (23:32)
[2018-12-31] MEDS: GUAIFENESIN/DM 10 ML UDCUP PO PRN ×3 (01:00→22:05)
[2018-12-31] MEDS: ACETAMINOPHEN 325 MG TAB PO PRN ×4 (03:22→21:59)
[2018-12-31] MEDS: SENNOSIDES/DOCUSATE SODIUM TAB PO SCH ×2 (09:15→21:57)
[2018-12-31] MEDS: predniSONE 20 MG TAB PO SCH (09:15)
[2018-12-31] MEDS: CETIRIZINE 10 MG TAB PO SCH (09:15)
[2018-12-31] MEDS: guaiFENesin 600 MG TAB.ER PO SCH ×2 (09:16→21:57)
[2018-12-31] MEDS: BENZONATATE 100 MG CAP PO PRN (09:26)
--- NOTE | 2018-12-31 09:57 | PCMIDPN ---
Assessment/Plan: # Pneumococcal LLL PNA and bacteremia. AF since admit. WBC stable. Blood cx cleared while on ceftriaxone even though sensi intermediate. Lung exam today improved today compared to 12/29 with increased air movement L base. Still with bothersome coughing --repeat CXR --awaiting cards input regarding prolonged QT (QTc on admit was in 600s but was on azithro and tamiflu prior) --hold off on Vanco T, hopeful to transition to PO Levoquin #Recent Influenza: patient on droplet precautions # Leukocytosis: stable today but overall down. On steroids Microbiology 12/27/18 Blood Cx 12/12 : Streptococcus Pneumoniae 12/29/18 Blood cx (2): NGTD HIV neg Meds Vancomycin 500mg IV q12h #2 Pred 40mg Daily Subjective: doesnt feel as good today, but may have overdone it today still with coughing which is causing some L upper chest discomfort. Objective: Vital Signs Temp Pulse Resp BP Pulse Ox 36.8 C 62 20 110/76 94 12/31/18 08:00 12/31/18 08:00 12/31/18 08:00 12/31/18 08:00 12/31/18 08:00 Laboratory Results 12/31/18 05:08 12/31/18 05:08 12/30/18 12/31/18 01/01/19 05:59 05:59 05:59 Intake Total 1400 1000 100 Output Total 1 Balance 1400 999 100 ESR 19 MM/HR (0-20) 12/27/18 11:56 C-Reactive Protein 201.6 mg/L (<10.0) H 12/27/18 11:56 - Physical Exam General Appearance: alert, no apparent distress, thin, non-toxic EENT: normal ENT inspection, No scleral icterus, No thrush Respiratory: other (decreased BS L base but improved air movement compared to 2 days ago), No accessory muscle use Neck: supple Cardiac/Chest: regular rate, rhythm, No systolic murmur Extremities: No pedal edema Abdomen: non-tender, soft Skin: No rash Neuro/Psych: alert, normal mood/affect, oriented x 3 - Line/s PIV Lines: other (R forearm), No drainage, No erythema - Time Spent With Patient Time Spent with Patient: greater than 35 minutes Time Spent with Patient: Greater than 35 minutes spent on this patients care, greater than 50% of time spent counseling, educating, and coordinating care regarding the above mentioned plan. ICD10 Worksheet Patient Problems: Problems Problem Status Onset Fever Acute Influenza Acute Pneumonia Acute Tachycardia Acute
[2018-12-31] MEDS: VANCOMYCIN 500 MG in D5W 100 ML IV SCH (10:26)
[2018-12-31] MEDS: CALCIUM CARBONATE 500 MG CHEWABLE TAB PO PRN ×2 (10:27→14:59)
--- NOTE | 2018-12-31 13:51 | GCON ---
[f rep st] CONSULTATION CARDIOLOGY CONSULTATION DATE OF CONSULTATION: 12/31/2018 REFERRING PHYSICIAN: Raf Darby MD INDICATION FOR CONSULTATION: Concern for possible prolonged QT interval on presenting ECG. HISTORY OF PRESENT ILLNESS: The patient is a pleasant 43-year-old female with a past medical history of ADHD, anxiety, irritable bowel syndrome, and a history of esophageal stricture status post dilata tion, who was in her usual state of health until last Friday when she woke up with a fever and kwadwo lgias. She was seen by her primary care physician, who diagnosed her with influenza A. She was star nani on Tamiflu. Two days later on Friday, she was feeling better, but noticed increased coughing wit h rib pain with increased coughing. She returned to her primary care physician, who started her on p rednisone and a course of azithromycin. By Friday, she continued to feel poorly, now with chest pain and increased coughing, prompting her to call [phone]. She presented to [facility] and was found to be septic with elevated la ctate, leukocytosis, and tachycardia. Her presenting ECG demonstrated sinus tachycardia at 121 beats per minute. Her initial ECG from 2018, at 5:28 a.m. demonstrated sinus tachycardia at 121 beats per minute. QT corrected int erval per the computer was 609 milliseconds. Per my calculation from lead 2, with most clearly disti nguishable T-wave, QT uncorrected was 320 milliseconds with QT corrected interval with a Saeed formu la in the setting of a heart rate of 121 calculated of 427 milliseconds. Repeat ECG performed on December 30, 2018, demonstrates sinus rhythm with a QT interval 400 milliseco nds by my measurement, with QT corrected with Bazett formula in the setting of a heart rate of 71 of 435 milliseconds. I was asked to see her regarding possible prolonged QT interval. The patient has no known family history of long QT syndrome. She has no family history of sudden car diac . She has 3 sisters, who are alive and well. Her parents are alive and well with no known cardiac issues. She did have a paternal grandfather, who from a myocardial infarction in his 4 0s. She denies complaints of palpitations, dizziness, lightheadedness, recent syncope, or near syncope. Of note, she does have an isolated episode of syncope approximately 6 months ago that occurred while urinating. PAST MEDICAL HISTORY: Again is notable for ADHD, anxiety, irritable bowel syndrome, and a history of esophageal stricture status post dilatation. PAST SURGICAL HISTORY: Includes oophorectomy secondary to cyst removal in 2011. MEDICATIONS ON ADMISSION: Include Adderall 10 mg p.o. t.i.d. p.r.n., Ativan 0.5 to 1 mg p.o. q.8 h. p.r.n., and Protonix 20 mg daily p.r.n. She has been on Tamiflu 75 mg p.o. b.i.d., acetaminophen 100 0 mg p.o. q.8 h. p.r.n., Motrin 600 mg p.o. q.6 h. p.r.n., Imodium 2 mg p.o. p.r.n., azithromycin 250 mg daily, prednisone 20 mg p.o. b.i.d., and albuterol inhaler q.i.d. p.r.n. ALLERGIES TO MEDICATIONS: None. SOCIAL HISTORY: She is . She has 3 children. She has 23-year-old and 19-year-old daughters . She has a 22-year-old son, who is a C4 quadriplegic after a motor vehicle accident approximately 4 years ago, whom she is she cares for. 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 She drinks alcohol approxi mately twice per week, approximately 2 to 3 glasses of wine. She occasionally uses marijuana. FAMILY HISTORY: No family history of premature coronary artery disease. No family history of sudden cardiac and no known history of prolonged QT syndrome. No known history of unexplained syncop e. PHYSICAL EXAMINATION: VITAL SIGNS: Blood pressure 110/76, heart rate 62, oxygen saturation 94% on r oom air, and temperature 36.8. GENERAL: She is awake, alert, oriented, and appropriate. No apparen t distress. She does have occasional intermittent cough. LUNGS: Clear to auscultation bilaterally. CARDIAC: S1 and S2. Regular rate and rhythm. No murmurs, rubs, or gallops. ABDOMEN: Soft, nont shantell, and nondistended. There is no evidence of pulsatile mass or abdominal bruit. EXTREMITIES: N o evidence of cyanosis, clubbing or edema. LAB DATA: Demonstrates white blood cell count of 15.03, hemoglobin 10, hematocrit 30.9, and platelet count 398. Sodium 134, potassium 3.6, BUN 5, and creatinine 0.4. Troponin less than 0.012. DATA: Echocardiogram demonstrated normal left and right ventricular function. LVEF of 63%. Mild to moderate tricuspid regurgitation with RV systolic pressure of 40 mmHg. No evidence of pericardial e ffusion. Please see HPI for my review of her 2 previous ECGs. IMPRESSION: 1. History of influenza A. 2. History of documented prolonged QT interval on initial ECG. The patient presents with influenza A and sinus tachycardia at 121 beats per minute on admission. T- waves were diffusely flattened on initial ECG, making correct interpretation of QT interval difficult . However, lead V2 clearly has a T-wave, in that termination of the T-wave is clearly notable. On m y measurement off lead V2, QT interval uncorrected of 320 milliseconds, which corrects to 427 millise conds with a Saeed formula in the setting of sinus tachycardia at 121 beats per minute. Subsequent EKG demonstrates QT corrected with Bazett formula at 71 beats per minute of 435 milliseconds. These intervals are all within normal limits. I do not think that she has drug-induced prolonged QT interv al. She does not have underlying prolonged QT interval at baseline. She has no family history bridgett rning of a possible undiagnosed long QT syndrome. I would recommend that she be treated with whatever antibiotics that Infectious Disease Department fe els is warranted in the setting of her influenza. I have contacted Dr. Twyla Martin with my findings. PLAN: 1. Normal QT interval per my measurements on initial and followup ECG. 2. No history of QT prolongation. 3. Normal complete 2D echocardiogram. 4. No need for further cardiology followup. Please call with further questions. /[id number]/MODL
--- NOTE | 2018-12-31 13:59 | HOSPPROG ---
Hospitalist Progress Note Assessment/Plan: #Strep PNA/bacteremia: -IV CTX. Changed 12/30 due to sensitivities. Changed to Vancomycin due to reported Long QT syndrome on initial EKG -Most recent EKG shows no long QT. No family hx of long QT. Awaiting Cards consult - Repeat cultures NGTD. -can likely change to Levaquin pending Cards eval #Long QT Syndrome on admission -EKG 12/30 shows resolution, per above #Intractable cough: Tessalon pearls,guaifenesin. Add Tussinex #Influenza A: completed Tamiflu #Mild asthma exacerbation: pred, nebs #Atypical chest pain: pleurisy versus pericarditis. Has diffuse ST depression, but negative troponin. Echo normal #Tachycardia: resolved # Lactic acidosis: resolved with IVFs # Sepsis: due to PNA, Strep bacteremia. # Attention deficit hyperactivity disorder (ADHD): Continue Adderall. # Anxiety: Home Ativan as needed. # History of esophageal stricture: PPI. # Diet: Regular. # Deep vein thrombosis (DVT) prophylaxis: Ambulatory. Dispo. Cards to see today. Await reccs from Cards and ID Pt reports generalized malaise today. Will monitor overnight, repeat labs in a.m. and await reccs per above. Hopefully can d/c tomorrow. Pt is in agreement Change Protonix to daily per her request Subjective: generalized malaise. afebrile. Objective: Vital Signs Temp Pulse Resp BP Pulse Ox 36.8 C 62 20 110/76 94 12/31/18 08:00 12/31/18 08:00 12/31/18 08:00 12/31/18 08:00 12/31/18 08:00 Laboratory Results 12/31/18 05:08 12/31/18 05:08 12/30/18 12/31/18 01/01/19 05:59 05:59 05:59 Intake Total 1400 1000 100 Output Total 1 Balance 1400 999 100 - Physical Exam Constitutional: no apparent distress Eyes: PERRL, EOMI Ears, Nose, Mouth, Throat: moist mucous membranes, hearing normal Cardiovascular: regular rate and rhythym, No edema Respiratory: no respiratory distress, reduced air movement, expiratory wheeze Gastrointestinal: normoactive bowel sounds, soft, non-tender abdomen Genitourinary: no bladder fullness Skin: warm Neurologic: AAOx3 Psychiatric: interacting appropriately, not anxious, not encephalopathic Lymph, Heme, Immunologic: No petechiae ICD10 Worksheet Patient Problems: Problems Problem Status Onset Fever Acute Influenza Acute Pneumonia Acute Tachycardia Acute
--- NOTE | 2018-12-31 14:08 | ASMTCMCOM ---
CM Note CM Note Notes: After ID and Cardiology consultations today, it's confirmed that patient should be ok to discharge on oral antibiotics. She has completed Tamiflu. Anticipate discharge home independently tomorrow. Case Management available if this changes. Date Signed: 12/31/2018 02:07 PM Electronically Signed By:Kate Vanessa RN
[2018-12-31] MEDS ORDERED: POTASSIUM CL 10 MEQ TAB PO ONE (15:06)
[2018-12-31] MEDS: ALBUTEROL 60 PUFFS/8 GM MDI IH PRN (15:28)
[2018-12-31] MEDS: LORazepam 1 MG TAB PO PRN (22:04)
[2018-12-31] MEDS: HYDROcodone/CPM TUSSIONEX 5 ML UDSYR PO PRN (23:52)
[2019-01-01] MEDS: BENZONATATE 100 MG CAP PO PRN ×2 (04:46→10:36)
[2019-01-01] MEDS: ACETAMINOPHEN 325 MG TAB PO PRN (04:47)
[2019-01-01] MEDS: GUAIFENESIN/DM 10 ML UDCUP PO PRN ×2 (04:48→10:36)
[2019-01-01 05:03] LABS: PLATELET COUNT 468 10^3/uL (150-400)
[2019-01-01 08:06] VITALS: BP 131/92
[2019-01-01] MEDS ORDERED: PANTOPRAZOLE SODIUM 40 MG TAB PO SCH (09:00)
--- NOTE | 2019-01-01 09:33 | PCMIDPN ---
Assessment/Plan: # Pneumococcal LLL PNA and bacteremia. More resistant susceptibility pattern of pneumococcus. Much better. Blood cultures demonstrate clearance. Patient was on ceftriaxone when blood cultures were collected. --F/u next Friday w me at 10:30am --9 more days levofloxacin 750mg daily # Recent Influenza: patient on droplet precautions but does not need special precautions at DC # Leukocytosis: stable today but overall down. On steroids Microbiology 12/27/18 Blood Cx 12/12 : Streptococcus Pneumoniae (R: amox, clinda, erythromycin, tetra, bactrim, ceftriaxone DESHAWN=2) 12/29/18 Blood cx (2): NGTD HIV neg Meds Levofloxacin 750 mg 1 p. o. Daily, # 2 Subjective: Patient feeling well in desires discharge Objective: Vital Signs Temp Pulse Resp BP Pulse Ox 36.6 C 67 16 131/92 H 95 01/01/19 08:00 01/01/19 08:00 01/01/19 08:00 01/01/19 08:00 01/01/19 08:00 Laboratory Results 01/01/19 04:36 01/01/19 04:36 12/31/18 01/01/19 01/02/19 05:59 05:59 05:59 Intake Total 1000 1950 Output Total 1 Balance 999 1950 ESR 19 MM/HR (0-20) 12/27/18 11:56 C-Reactive Protein 201.6 mg/L (<10.0) H 12/27/18 11:56 - Physical Exam General Appearance: alert, no apparent distress Respiratory: crackles (Left base consistent with much improved air movement), No accessory muscle use, No wheezing Neck: supple Cardiac/Chest: regular rate, rhythm Skin: No rash Neuro/Psych: alert, normal mood/affect, oriented x 3 - Time Spent With Patient Time Spent with Patient: greater than 25 minutes Time Spent with Patient: Greater than 25 minutes spent on this patients care, greater than 50% of time spent counseling, educating, and coordinating care regarding the above mentioned plan. ICD10 Worksheet Patient Problems: Problems Problem Status Onset Fever Acute Influenza Acute Pneumonia Acute Tachycardia Acute
[2019-01-01] MEDS: guaiFENesin 600 MG TAB.ER PO SCH (10:31)
[2019-01-01] MEDS: predniSONE 20 MG TAB PO SCH (10:31)
[2019-01-01] MEDS: CETIRIZINE 10 MG TAB PO SCH (10:32)
--- NOTE | 2019-01-01 15:53 | PDDCSUM ---
Discharge Summary Discharge Summary: This is a 43 yo female who was admitted with step PNA related sepsis. She was treated accordingly and is now much better. She was treated initially with Rocephin and this was changed to Vancomycin once sensitivities were available and due to concern for long QT Per cards no long QT was actually present and the pt is now on Levaquin for the plan for 9 additional doses from today. ID will follow next week She is on prednisone and will taper to 20mg daily cont albuterol DDX: #Strep PNA/bacteremia: #Long QT Syndrome on admission -EKG 12/30 shows resolution, per above #Intractable cough: Tessalon pearls,guaifenesin. #Influenza A: completed Tamiflu #Mild asthma exacerbation: pred, nebs #Atypical chest pain: pleurisy versus pericarditis. Has diffuse ST depression, but negative troponin. Echo normal #Tachycardia: resolved # Lactic acidosis: resolved with IVFs # Sepsis: due to PNA, Strep bacteremia. # Attention deficit hyperactivity disorder (ADHD): Continue Adderall. # Anxiety: Home Ativan as needed. # History of esophageal stricture: PPI. Exam:. NAD AAOX3 RRR CTA B S/NT/ND MEDS: SEE MED REC TOTAL TIME SPENT ON D/C IS 35 MINS. D/W ID
--- NOTE | 2019-01-01 16:11 | ASDISCHSUM ---
Discharge Information Plan Status:Home with No Needs Medically Cleared to Leave:12/31/2018 Discharge Date:01/01/2019 12:03 PM CM D/C Disposition:Home, Routine, Self-Care ADT D/C Disposition:Home, Routine, Self-Care Projected Discharge Date:01/01/2019 12:00 AM Transportation at D/C:Friend Discharge Delay Reason: Follow-Up Date:01/01/2019 12:00 AM Discharge Slot:2 - 12:01 pm - 18:00 pm Final Diagnosis:strep PNA/Bacteremia Placement Information Patient Contact Information Contact Name:DOLORESSCHUYLER Relationship:Rosalio Address: Home Phone: City: [facility] Phone: [facility] Code: Email: Financial Information Financial Class:Medicaid Primary Plan Desc:[employer] [facility] Primary Plan Number:[id number] Secondary Plan Desc: Secondary Plan Number: Assessment Information [facility] Progress Note CM Note CM Note Notes: Patient chart reviewed for discharge planning purposes. 43 year old female s/p one week of influenza admitted with pleuritic pain and is diagnosed with pneumonia. No needs anticipated for discharge at this time. CM available should needs arise. Plan: likely to discharge home independent when medically cleared for discharge. Date Signed: 12/27/2018 03:44 PM Electronically Signed By:Alice Cortez RN [facility] CM Progress Note CM Note CM Note Notes: Plan of care reviewed in rounds this am. 43 year old female with PNA and influenza. Clinically not well enough to discharge yet. Likely one more day. No needs anticipated. Plan: Dc to home when medically cleared for discharge. Date Signed: 12/29/2018 04:54 PM Electronically Signed By:Alice Cortez RN [facility] CM Progress Note CM Note CM Note Notes: After ID and Cardiology consultations today, it's confirmed that patient should be ok to discharge on oral antibiotics. She has completed Tamiflu. Anticipate discharge home independently tomorrow. Case Management available if this changes. Date Signed: 12/31/2018 02:07 PM Electronically Signed By:Kate Vanessa RN Case Management Discharge Plan Note Case Management Discharge Discharge Order Complete? Answers: Yes Patient to Obtain Answers: Independently Medications Transportation Arranged Answers: Family/Friends Discharge Comments Notes: Patient discharged home independent with support of friends. Date Signed: 01/01/2019 04:09 PM Electronically Signed By:Minna Isaac Intervention Information
== END 2019-01-01 12:03 | disposition home or self-care (01) | DRG 720 ==
LOC: EDUNIT# → INTOOBSV 05:35 → F1N 09:27 → OBSVTOIN 12-28 14:11
PROVIDERS: ADMIT Family Medicine; ATTEND Family Medicine
DX: A40.3 Sepsis due to Streptococcus pneumoniae (principal); J13 Pneumonia due to Streptococcus pneumoniae; J10.08 Influenza due to other identified influenza virus with other specified pneumonia; I45.81 Long QT syndrome; J45.901 Unspecified asthma with (acute) exacerbation; E87.2 Acidosis; E86.0 Dehydration; R07.89 Other chest pain; R00.0 Tachycardia, unspecified; F90.9 Attention-deficit hyperactivity disorder, unspecified type; F41.9 Anxiety disorder, unspecified
CPT/HCPCS: 84484-ER; 96365; G0378; J0456; J0696; J1170; J1885; J2270; J3370; J7512; J7613